=== PATIENT | female | born 1985 | race Caucasian/White ===

== ENCOUNTER 2024-06-07 04:10 | Day surgery (SDC) | payer BC, OTHER ==
[2024-06-07] MEDS ORDERED: PHENAZOPYRIDINE HCL 100 MG TABLET (FP) ONE (06:31)
[2024-06-07] MEDS: PHENAZOPYRIDINE HCL 100 MG TABLET (FP) PO ONE (06:51)
[2024-06-07] MEDS ORDERED: LIDOCAINE HCL 2% 100 MG/5 ML DISP.SYRIN ONE (07:44)
[2024-06-07] MEDS ORDERED: SUCCINYLCHOLINE CHLORIDE 200 MG/10 ML SYRINGE ONE (07:44)
[2024-06-07] MEDS ORDERED: MIDAZOLAM HCL 2 MG/2 ML SINGLE DOSE VIAL ONE (07:44)
[2024-06-07] MEDS ORDERED: PROPOFOL 20 ML ONE (07:44)
[2024-06-07] MEDS ORDERED: ROCURONIUM BROMIDE 50 MG/5 ML SYRINGE ONE (07:44)
[2024-06-07] MEDS ORDERED: ONDANSETRON 4 MG/2 ML VIAL ONE (08:15)
[2024-06-07] MEDS ORDERED: DEXAMETHASONE SOD PHOSPHATE 4 MG/1 ML VIAL ONE (08:15)
[2024-06-07] MEDS: ceFAZolin SODIUM 1 GM VIAL IVPB ONE (08:16)
[2024-06-07] MEDS ORDERED: SUGAMMADEX SODIUM 200 MG/2 ML VIAL ONE (09:36)
[2024-06-07] MEDS ORDERED: KETOROLAC TROMETHAMINE 30 MG/1 ML VIAL ONE (09:37)
[2024-06-07] MEDS ORDERED: oxyCODONE HCL 5 MG TABLET PO PRN ×2 (10:05→10:13)
[2024-06-07] MEDS ORDERED: ONDANSETRON 4 MG/2 ML VIAL IVPUSH PRN ×2 (10:05→10:13)
[2024-06-07] MEDS ORDERED: DOCUSATE SODIUM 100 MG CAPSULE (FP) PO PRN (10:13)
[2024-06-07] MEDS ORDERED: SIMETHICONE 80 MG TAB.CHEW (FP) PO PRN (10:13)
[2024-06-07] MEDS ORDERED: BISACODYL 5 MG TABLET.DR (FP) PO PRN (10:13)
[2024-06-07] MEDS ORDERED: ZOLPIDEM TARTRATE 5 MG TABLET PO PRN (10:18)
[2024-06-07] MEDS: ACETAMINOPHEN 1000 MG/100 ML BAG IVPB ONE (11:17)
[2024-06-07] MEDS: CEFAZOLIN 2 GM in DEXTROSE 5%-WATER - 100 ML IVPB ONE (11:17)
[2024-06-07] MEDS: TRANEXAMIC ACID 1000 MG/10 ML VIAL IVPUSH ONE (11:18)
[2024-06-07] MEDS: morphine CARPU-JECT 2 MG/1 ML DISP.SYRIN IVPUSH PRN (11:28)
[2024-06-07] MEDS: LACTATED RINGERS SOLUTION 1,000 ML IV SCH (12:00)
[2024-06-07] MEDS: CEFAZOLIN 1 GM/D5W 1 GM/50 ML BAG IVPB SCH (17:46)
[2024-06-07] MEDS: ACETAMINOPHEN 500 MG TABLET (FP) PO SCH (17:46)
[2024-06-07] MEDS: IBUPROFEN 800 MG/8 ML IJ IVPB SCH (17:47)
[2024-06-07 18:49] LABS: HEMATOCRIT 35.3 % (32.4-45.2); HEMOGLOBIN 11.8 GM/dL (10.7-15.3); MCH 29.7 pg (25.7-33.7); MCHC 33.3 g/dl (32.0-36.0); MEAN CELL VOLUME 89.2 fl (80-96); MEAN PLT VOLUME 8.3 fl (7.5-11.1); PLATELET COUNT 303 10^3/uL (134-434); RBC 3.96 M/mm3 (3.60-5.2); RDW 12.9 % (11.6-15.6); WHITE BLOOD COUNT 9.7 K/mm3 (4.0-10.0)
[2024-06-07 19:19] LABS: POTASSIUM 3.9 mmol/L (3.5-5.1)
[2024-06-07 19:23] LABS: CALCIUM 8.7 mg/dL (8.5-10.1)
[2024-06-07 19:24] LABS: BLOOD UREA NITROGEN 10.4 mg/dL (7-18)
[2024-06-08] MEDS: oxyCODONE HCL 5 MG TABLET PO PRN (00:12)
[2024-06-08 02:01] VITALS: RESP 18
[2024-06-08 08:20] LABS: HEMATOCRIT 32.9 % (32.4-45.2); HEMOGLOBIN 10.9 GM/dL (10.7-15.3); MCH 29.7 pg (25.7-33.7); MCHC 33.2 g/dl (32.0-36.0); MEAN CELL VOLUME 89.6 fl (80-96); MEAN PLT VOLUME 8.2 fl (7.5-11.1); PLATELET COUNT 308 10^3/uL (134-434); RBC 3.68 M/mm3 (3.60-5.2); RDW 12.7 % (11.6-15.6); WHITE BLOOD COUNT 17.5 K/mm3 (4.0-10.0)
[2024-06-08 08:46] LABS: POTASSIUM 4.2 mmol/L (3.5-5.1)
[2024-06-08 08:48] LABS: BLOOD UREA NITROGEN 9.6 mg/dL (7-18); CALCIUM 8.7 mg/dL (8.5-10.1)
[2024-06-08 08:52] LABS: CREATININE 0.9 mg/dL (0.55-1.3)
[2024-06-08] MEDS: ENOXAPARIN NA (PORCINE) 40 MG/0.4 ML DISP.SYRIN SQ SCH (09:11)
[2024-06-08 09:34] VITALS: BP 110/74; PULSE 75; TEMP 98.3
[2024-06-08] MEDS ORDERED: IBUPROFEN 600 MG TABLET (FP) PO SCH (10:30)
== END 2024-06-08 09:50 | disposition home or self-care (01) ==
LOC: JASUSAT 04:10 → J3W 12:18 → JASUSAT 06-08 09:50
PROVIDERS: ATTEND Obstetrics & Gynecology
PROC: 0UB67ZZ Excision of Left Fallopian Tube, Via Natural or Artificial Opening (ICD-10-PCS; 2024-06-07)
PROC: 0UT9FZZ Resection of Uterus, Via Natural or Artificial Opening With Percutaneous Endoscopic Assistance (ICD-10-PCS; principal; 2024-06-07 07:30)
DX: D25.9 Leiomyoma of uterus, unspecified (principal); N83.201 Unspecified ovarian cyst, right side
CPT/HCPCS: 58552; S2900; 36415; 80048; 85027; 86850; 86900; 86901; 88305-TC; 88307-TC; 88341-TC; 88342-TC; 94760